=== PATIENT | female | born 1960 | race Caucasian/White ===

== ENCOUNTER → 2017-12-29 | Outpatient (CLI) | payer OTHER ==
--- NOTE | 2017-12-29 11:12 | PCVCIMAG ---
APPROVED REPORT Study performed: 12/29/2017 09:50:40 EXAM: Comprehensive 2D, Doppler, and color-flow Echocardiogram Patient Location: Echo lab Status: routine BSA: 2.12 HR: 75 bpmBP: 130/80 mmHg Rhythm: NSR Other Information Study Quality: Adequate Indications Atrial Fibrillation Dyspnea Palpitations Chest Pain 2D Dimensions IVSd: 11.82 (7-11mm) LVDd: 37.39 mm PWd: 10.30 (7-11mm) LVDs: 26.49 (25-40mm) Left Atrium: 39.80 (27-40mm) Aortic Root: 30.97 mm LV Single Plane 4CH: 48.36 % LV Single Plane 2CH: 49.49 % Biplane EF: 50.0 % Volumes Left Atrial Volume (Systole) Single Plane 4CH: 68.45 mLSingle Plane 2CH: 67.95 mL LA ESV Index: 34.00 mL/m2 Aortic Valve AoV Peak Dheeraj.: 1.40 m/s AO Peak Gr.: 7.84 mmHgLVOT Max P.16 mmHg LVOT Max V: 1.14 m/s Mitral Valve E/A Ratio: 1.4 MV Decel. Time: 207.78 ms MV E Max Dheeraj.: 0.91 m/s MV A Dheeraj.: 0.66 m/s IVRT: 134.95 ms Pulmonary Valve PV Peak Dheeraj.: 1.16 m/sPV Peak Gr.: 5.42 mmHg Pulmonary Vein P Vein S: 0.26 m/sP Vein A: 0.33 m/s P Vein D: 0.34 m/sP Vein A Dur.: 131.5 msec P Vein S/D Ratio: 0.76 Tricuspid Valve TR Peak Dheeraj.: 2.36 m/s TR Peak Gr.: 22.35 mmHg Left Ventricle The left ventricle is normal size. There is normal LV segmental wall motion. There is normal left ventricular wall thickness. Left ventricular systolic function is normal. The left ventricular ejection fraction is within the normal range. LVEF is 50-55%. Grade I - abnormal relaxation pattern. Right Ventricle The right ventricle is normal size. The right ventricular systolic function is normal. Atria Left atrium is mildly dilated. The right atrium size is normal. Aortic Valve The aortic valve is normal in structure. No aortic regurgitation is present. There is no aortic valvular stenosis. Mitral Valve The mitral valve is normal in structure. There is no mitral valve regurgitation noted. No evidence of mitral valve stenosis. Tricuspid Valve The tricuspid valve is normal in structure. Trace tricuspid regurgitation with PAP of 29 mmHg. Pulmonic Valve The pulmonary valve is normal in structure. Trace pulmonic regurgitation. Great Vessels The aortic root is normal in size. IVC is normal in size and collapses >50% with inspiration. Pericardium There is no pericardial effusion. There is no pleural effusion. <Conclusion> The left ventricle is normal size. There is normal left ventricular wall thickness. Left ventricular systolic function is normal. Grade I - abnormal relaxation pattern. The right ventricle is normal size. Left atrium is mildly dilated. The right atrium size is normal. The aortic valve is normal in structure. There is no mitral valve regurgitation noted. Trace tricuspid regurgitation with PAP of 29 mmHg.
--- NOTE | 2017-12-29 11:21 | PCVCIMAG ---
APPROVED REPORT Study performed: 12/29/2017 10:32:51 Exam: Stress Echocardiogram Indication: Atrial Fibrillation, Dyspnea , Palpitations, chest pressure, fam hx cad Patient Location: Echo lab Stress Nurse: Denise Malcolm RN Status: routine Ht: 5 ft 7 in HR: 81 bpm BP: 130/80 mmHg Rhythm: NSR Procedure The patient underwent an Exercise Stress Test using the Scott Protocol. Blood pressure, heart rate, and EKG were monitored. An Echocardiogram was performed by technician's helper in four stages in quad fashion. At peak stress, four selected images were obtained and placed side by side with resting images for comparison. Stress Test Details Stress Test: Exercise stress testing was performed using a Scott protocol. HR Resting HR: 81 bpmMax Heart Rate (APMHR): 164 bpm Max HR Achieved: 162 bpmTarget HR (85% APMHR): 139 bpm % of APMHR: 98 Recovery HR: 101, 168-when in A Fib bpm HR response to stress: Normal HR response to stress BP Resting BP: 130/80 mmHg Max BP: 204/84 mmHg Recovery BP: 168/80 mmHg ECG Resting ECG: Sinus Rhythm Stress ECG: Sinus Rhythm ST Change: Non-ischemic Arrhythmia: None Recovery ECG: Rapid Atrial Fibrillation Recovery ST Change: Normal Recovery Arrhythmia: Rapid Atrial Fibrillation that resolved after 7 minutes and converted to NSR with positional change Clinical Reason for Termination: Maximal effort Stress Symptoms: Dyspnea Exercise duration: 7 min 21 sec Highest Stage Achieved: Stage 3: 3.4 mph at 14% grade. Exercise capacity: 10.1 METs Overall Exercise Capacity for Age: Average Scale: Sedentary Angina Score: None Pre-Stress Echo The resting Echocardiogram showed normal left ventricular contractility with an estimated Ejection Fraction of about 50-55%. Normal wall motion in all segments on baseline images. Post-Stress Echo The stress Echocardiogram showed normal left ventricular contractility with an estimated Ejection Fraction of about 65%. Normal augmentation of wall motion in all segments on post stress images. Clinical No clinical or ECG evidence for ischemia. Conclusion Clinical Response: Non-ischemic Exercise Capacity: Average Stress ECG Response: Non-ischemic Stress Echo Images: Non-ischemic The left ventricle is normal in size and wall thickness in both the rest and stress images. In the recovery phase, the rhythm changed to rapid atrial fibrillation, eventually converting back to sinus rhythm spontaneously. Other Information Study Quality: Adequate <Conclusion> The left ventricle is normal in size and wall thickness in both the rest and stress images. In the recovery phase, the rhythm changed to rapid atrial fibrillation, eventually converting back to sinus rhythm spontaneously.
== END | disposition home or self-care (01) ==
LOC: PCVCIMAG 10:54
PROVIDERS: ATTEND Internal Medicine Cardiovascular Disease
DX: I48.91 Unspecified atrial fibrillation (principal); R00.2 Palpitations; R06.09 Other forms of dyspnea; R07.89 Other chest pain; Z82.49 Family history of ischemic heart disease and other diseases of the circulatory system
CPT/HCPCS: 93306; 93351